=== PATIENT | male | born 1975 | race African-American/Black ===

== ENCOUNTER 2021-08-07 11:32 | Inpatient (IN) | payer OTHER ==
[~2021-08-07] VITALS: Ht 175.3 cm; Wt 94.3 kg
[2021-08-07 11:34] VITALS: BP 135/89
[2021-08-07 12:04] LABS: ABSOLUTE LYMPHOCYTES 0.9 thou/uL (0.8-5.3); ABSOLUTE MONOCYTES 0.6 thou/uL (0.0-1.2); ABSOLUTE NEUTROPHILS 4.9 thou/uL (1.6-8.1); BASOPHILS 0.5 %; HEMATOCRIT 46.8 % (42.0-52.0); HEMOGLOBIN 15.7 gm/dL (14.0-18.0); LYMPHOCYTES 13.5 %; MCH 28.7 pg (26.0-34.0); MCHC 33.5 g/dL (28.0-37.0); MCV 85.7 fL (80.0-100.0); MONOCYTES 9.4 %; MPV 8.3 fl. (7.2-11.1); NUCLEATED RBCS 0 /100WBC; PLATELET COUNT* 189 thou/uL (150-400); POLYS 76.6 %; RBC 5.47 mil/uL (4.50-6.00); RDW-CV 12.7 % (10.5-14.5); WBC 6.4 thou/uL (4.0-11.0)
[2021-08-07 12:10] LABS: APTT 27.6 Seconds (25.0-31.3); PROTIME 9.8 Seconds (9.20-11.50)
[2021-08-07 12:17] LABS: BE -1.8 mmol/L (-2 to +3); PCO2 35.9 mmHg (35.0-45.0); PO2 63.1 mmHg (75.0-100.0); pH 7.409 (7.340-7.450)
[2021-08-07 12:26] LABS: ALBUMIN 2.8 g/dL (3.4-5.0); CALCIUM 8.5 mg/dL (8.5-10.1); CREATININE 1.9 mg/dL (0.6-1.3); POTASSIUM 4.8 mmol/L (3.5-5.1); TOTAL BILIRUBIN 0.4 mg/dL (<0.1-1.0); TOTAL PROTEIN 7.8 g/dL (6.4-8.2)
--- NOTE | 2021-08-07 16:11 | EKG ---
[place] [address] ELECTROCARDIOGRAM REPORT Name: ALICIA DOUGLAS Room: [place] [address] ADM IN [facility]#: [id number] Admission: 08/07/21 Attend Phys: Jennifer Lebron, Discharge: Date of : 75 Date of Service: 08/07/21 1153 Report #: [id number] THIS REPORT FOR: //name// [facility] ED Test Date: 2021-08-07 Test Time: 11:53:18 Pat Name: ALICIA DOUGLAS Department: Room: [facility] Gender: M Perfume Maker: JOHNNY : 1975 Requested By: Rangel Islas Order Number: [id number] MD: Jatinder Perez Measurements Intervals [place] Rate: 93 P: 52 OK: 133 QRS: -40 QRSD: 80 T: 29 QT: 359 QTc: 447 Interpretive Statements Sinus rhythm Left anterior fascicular block No previous ECG available for comparison Electronically Signed On 08-07-2021 16:11:19 JAVA ARCHITECT by Jatinder Perez [email or web address] <ELECTRONICALLY SIGNED> By: Jatinder Perez MD, [facility] 08/07/21 1611 1153 1153 Jatinder Perez MD, [facility] /EPI
[2021-08-07 16:46] VITALS: BP 147/84
[2021-08-07 18:50] LABS: CALCIUM 8.9 mg/dL (8.5-10.1); CREATININE 1.7 mg/dL (0.6-1.3); POTASSIUM 5.2 mmol/L (3.5-5.1)
[2021-08-07 20:40] VITALS: BP 147/84
[2021-08-08] VITALS (7 sets, daily range): BP systolic 136–160; BP diastolic 49–90
[2021-08-08 04:01] LABS: HEMATOCRIT 40.3 % (42.0-52.0); HEMOGLOBIN 13.8 gm/dL (14.0-18.0); MCHC 34.4 g/dL (28.0-37.0); MCV 84.3 fL (80.0-100.0); MPV 7.9 fl. (7.2-11.1); RBC 4.78 mil/uL (4.50-6.00); WBC 6.1 thou/uL (4.0-11.0)
[2021-08-08 04:20] LABS: ALBUMIN 2.3 g/dL (3.4-5.0); CALCIUM 7.9 mg/dL (8.5-10.1); CREATININE 1.4 mg/dL (0.6-1.3); MAGNESIUM 2.9 mg/dL (1.8-2.4); POTASSIUM 4.9 mmol/L (3.5-5.1); TOTAL BILIRUBIN 0.3 mg/dL (<0.1-1.0); TOTAL PROTEIN 6.6 g/dL (6.4-8.2)
[2021-08-09] VITALS: BP 145/75
[2021-08-09 04:34] VITALS: BP 155/91
[2021-08-09 04:53] LABS: MCH 28.7 pg (26.0-34.0); MCHC 34.3 g/dL (28.0-37.0); MCV 83.7 fL (80.0-100.0); MPV 7.8 fl. (7.2-11.1); RBC 4.54 mil/uL (4.50-6.00); RDW-CV 13.2 % (10.5-14.5)
[2021-08-09 04:59] LABS: CALCIUM 7.8 mg/dL (8.5-10.1); CREATININE 1.1 mg/dL (0.6-1.3)
--- NOTE | 2021-08-09 05:27 | NUR ---
PT AO X4 TO FLOOR AT SHIFT CHANGE. FLUIDS AND MEDS PER ORDER. PT BP HAS BEEN TO THE HIGH SIDE THIS SHIFT. HE IS USING BSC TO VOID AND REPORTS SOME DIARRHEA THE PAST FEW DAYS. PT IS NSR ON TELEMETRY. PT MAKES NEEDS KNOWN WITH HOURLY ROUNDING AND IS TAKING GOOD PO INTAKE. CALL LIGHT IN REACH FOR PT SAFETY.
[2021-08-09 07:08] LABS: GLYCOHEMOGLOBIN (HGB A1C) 13.5 % (4.8-5.6)
[2021-08-09 09:00] VITALS: BP 153/82
[2021-08-09 10:42] LABS: BE -2.9 mmol/L (-2 to +3); PCO2 38.5 mmHg (35.0-45.0); pH 7.373 (7.340-7.450)
[2021-08-09 10:49] LABS: PO2 351.1 mmHg (75.0-100.0)
[2021-08-09 18:25] VITALS: BP 130/72
[2021-08-09 20:00] VITALS: BP 145/82
[2021-08-09 23:59] LABS: URINE BILIRUBIN NEGATIVE (Negative); URINE BLOOD 1+ (Negative); URINE CLARITY CLEAR; URINE COLOR YELLOW; URINE GLUCOSE-RANDOM NEGATIVE (Negative); URINE KETONES NEGATIVE (Negative); URINE LEUKOCYTES-REFLEX NEGATIVE (Negative); URINE NITRITE-REFLEX NEGATIVE (Negative); URINE PROTEIN 1+ (Negative); URINE UROBILINOGEN 0.2 E.U./dl (0.2-1.0)
[2021-08-10 00:20] LABS: BACTERIA-REFLEX 1-9 Few /HPF (None Seen); MUCUS None Seen strn/LPF (None Seen); SQUAMOUS 0-3 Few /LPF (0-3); URINE RBC 0-2 Rare /HPF (0-2); URINE WBC-REFLEX 0-5 Rare /HPF (0-5)
[2021-08-10 00:21] LABS: CASTS None Seen /LPF (None Seen); CRYSTALS None Seen /LPF (None Seen)
[2021-08-10 00:54] VITALS: BP 144/83
[2021-08-10 04:00] VITALS: BP 151/85
[2021-08-10 04:43] LABS: HEMATOCRIT 38.5 % (42.0-52.0); HEMOGLOBIN 13.3 gm/dL (14.0-18.0); MCH 28.8 pg (26.0-34.0); MCHC 34.6 g/dL (28.0-37.0); MCV 83.1 fL (80.0-100.0); MPV 7.4 fl. (7.2-11.1); NUCLEATED RBCS 0 /100WBC; PLATELET COUNT* 252 thou/uL (150-400); RBC 4.64 mil/uL (4.50-6.00); RDW-CV 13.1 % (10.5-14.5); WBC 10.4 thou/uL (4.0-11.0)
[2021-08-10 05:05] LABS: CALCIUM 7.6 mg/dL (8.5-10.1); CREATININE 1.1 mg/dL (0.6-1.3); MAGNESIUM 2.2 mg/dL (1.8-2.4); POTASSIUM 3.7 mmol/L (3.5-5.1); TOTAL BILIRUBIN 0.4 mg/dL (<0.1-1.0); TOTAL PROTEIN 6.1 g/dL (6.4-8.2)
--- NOTE | 2021-08-10 05:45 | NUR ---
ASSUMED CARE OF PT AFTER REPORT AT 1930. PT A&OX4. VSS. PHYSICAL ASSESSMENT COMPLETED AND CHARTED. PT ON FAL 60L/100%. PT TRACING SR ON TELE. PT UPADLIB-BSC. SPUTUM, URINE SPECIMEN & MRSA SWAB SENT TO LAB. PT DENIES ANY PAIN. MAINTAINED ON ENHANCE PRECAUTION. CALL LIGHT WITHIN REACH.
[2021-08-10 07:05] LABS: ABSOLUTE LYMPHOCYTES 0.9 thou/uL (0.8-5.3); ABSOLUTE MONOCYTES 0.4 thou/uL (0.0-1.2)
[2021-08-10 07:07] LABS: PLATELET ESTIMATE ADEQUATE
[2021-08-10 08:45] VITALS: BP 152/78
[2021-08-10 12:47] VITALS: BP 169/76
[2021-08-10 20:00] VITALS: BP 137/76
--- NOTE | 2021-08-11 00:19 | NUR ---
PT REFUSES BIPAP
[2021-08-11 00:51] VITALS: BP 141/74
[2021-08-11 04:00] VITALS: BP 146/77
[2021-08-11 04:06] LABS: HEMATOCRIT 40.2 % (42.0-52.0); HEMOGLOBIN 13.5 gm/dL (14.0-18.0); MCHC 33.7 g/dL (28.0-37.0); MCV 83.1 fL (80.0-100.0); MPV 7.8 fl. (7.2-11.1); RBC 4.83 mil/uL (4.50-6.00); WBC 11.4 thou/uL (4.0-11.0)
[2021-08-11 04:39] LABS: CALCIUM 7.8 mg/dL (8.5-10.1); CREATININE 1.2 mg/dL (0.6-1.3); MAGNESIUM 2.2 mg/dL (1.8-2.4); POTASSIUM 3.6 mmol/L (3.5-5.1); TOTAL BILIRUBIN 0.4 mg/dL (<0.1-1.0); TOTAL PROTEIN 6.2 g/dL (6.4-8.2)
--- NOTE | 2021-08-11 07:50 | NUR ---
ASSUMED CARE OF PT AFTER REPORT AT 1930. PT A&OX4. VSS. PHYSICAL ASSESSMENT COMPLETED AND CHARTED. PT ON HHFNC 95%/50L-REFUSED BIPAP EVEN AFTER EDUCATION. PT UPADLIB TO BSC. PT DENIES ANY PAIN. CALL LIGHT WITHININ REACH. PT ABLE TO SLEEP WELL ON BED. CALL LIGHT WITHIN REACH.
[2021-08-11 08:00] VITALS: BP 109/68
[2021-08-11 12:00] VITALS: BP 132/73
--- NOTE | 2021-08-11 14:01 | NUR ---
CM ASSESSMENT ASSESSMENT COMPLETED WITH PT'S FATHER (HOMER MISAEL-[phone]). PT RESIDES WITH SON IN SINGLE STORY HOME. PT HAS NO HX WITH DME AND IS INDEPENDENT WITH ADLS. PT HAS NO HX OF SKILLED, REHAB, OR HH SERVICES. PT NOT MEDICALLY CLEAR TO DC AND CURRENTLY ON HIFLOW O2. CM TO FOLLOW FOR DC PLANNING NEEDS.
--- NOTE | 2021-08-11 16:08 | CON ---
[address] [address] CONSULTATION Name: ALICIA DOUGLAS Room: [address] IN .R.#: [id number] Admission: 08/07/21 Attend Phys: Jennifer Lebron MD Discharge: Date of : 75 Report #: [id number] THIS REPORT FOR: cc: CHARIS - No family physician/PCP FAM - No family physician/PCP Triston Ernandez MD ~ DATE OF CONSULTATION: 08/09/2021 REQUESTING PHYSICIAN: Dr. Marcano. INDICATION FOR CONSULTATION: Acute hypoxemic respiratory failure secondary to COVID-19. HISTORY OF PRESENT ILLNESS: A 46-year-old gentleman. He reports that he is a lifetime nonsmoker. He has not been vaccinated for COVID-19. He does not have any significant past medical history. The patient is now admitted with progressively increasing weakness as well as shortness of breath and cough. He on presentation also had a glucose elevated above 500. His arterial blood gas, however, showed a pH of 7.41. Therefore, it appeared that he was in a nonketotic hyperosmolar state. The patient also was in acute renal failure with a creatinine of 1.9. He did test positive for COVID and was hypoxemic on room air initially, but was maintaining O2 saturation on 2 liters nasal cannula. Since then, the patient has been treated with insulin as well as has been on normal saline at 125 an hour. Initially was on an insulin drip and now is on subcutaneous insulin. In addition, he is also being treated with Decadron and remdesivir in addition to broad-spectrum antibiotics. His glucoses have improved down to 151 now. His creatinine has also normalized to 1.1; however, his respiratory status is significantly worse. Currently, he is on 95% FiO2 with 55 liters heated high-flow nasal cannula to maintain O2 saturation in the low 90s. Earlier, he was on BiPAP due to respiratory distress and we performed arterial blood gas with 100% FiO2 with BiPAP in place. His pO2 in fact was high at 351. Therefore, I am asking that O2 saturation will be checked at several sites to verify that we are getting accurate readings and we may do an arterial blood gas again if FiO2 saturations remain uncertain; however, it is also noted that I obtained the stat chest x-ray now and it does show considerable worsening infiltrates and there are now florid bilateral infiltrates noted in bilateral lung asencio. There is not much swelling of lower extremities. He is currently afebrile. REVIEW OF SYSTEMS: For 12 points is negative except as mentioned above. PAST MEDICAL HISTORY: There is no past medical history. SOCIAL HISTORY: Lifetime nonsmoker. No known history [place] [address] CONSULTATION Name: ALICIA DOUGLAS Room: [address] IN [facility]#: [id number] Admission: 08/07/21 Attend Phys: Jennifer Lebron MD Discharge: Date of : 75 Report #: [id number] illegal drug use. CURRENT MEDICATIONS: List in [facility] reviewed. HOME MEDICATIONS: No home medications. PHYSICAL EXAMINATION: GENERAL: He is alert, awake and oriented, does not appear to be in any distress; however, has O2 saturation of 94% on 55 liters of oxygen and 95% FiO2. VITAL SIGNS: He has a pulse of 75, blood pressure is 153/82, respiratory rate is around 22, afebrile with a temperature of 36.9. HEENT: Head is normocephalic and atraumatic. NECK: Does not show raised JVP. CHEST: Breath sounds are bilaterally equal. No added sounds. HEART: Regular. There is no murmur. ABDOMEN: Soft and nontender. EXTREMITIES: Lower extremities, no edema, no calf tenderness. LABORATORY DATA: CTA chest from 2 days ago as well as lab work in [facility] reviewed. Chest x-rays in [facility] reviewed. He is positive for both PCR and antigen for COVID-19. ASSESSMENT AND PLAN: 1. Acute hypoxemic respiratory failure secondary to COVID-19. Continue BiPAP while asleep. Continue heated high-flow nasal cannula while awake. We will be verifying his O2 saturations further as above. Avoid sleeping supine. There is a dramatic worsening of the chest x-rays, the chest x-ray compared with 2 days ago. Certainly, this could be due to a significant worsening of the infiltrates as well. However, considering that he has also received IV fluids, I will also go ahead and diurese him and see how he responds. 2. COVID-19. We would increase dexamethasone to 8 mg b.i.d. In fact may consider increasing dexamethasone even further. Recommend adjusting insulin accordingly. Continue remdesivir. Recommend Actemra. Unfortunately, Actemra is not available. 3. Pulmonary infiltrates. Continue the current antibiotics. If he fails to improve, then I intend to broaden antibiotics tomorrow. More cultures and serologies are ordered. I would switch to doxycycline to p.o. 4. Acute renal failure. This appears to be resolving. I am giving him Lasix as above. May need to accept mild elevation in BUN and creatinine. 5. Nonketotic hyperosmolar hyperglycemic state/diabetes. May need more insulin as a result of increase in the dexamethasone dose. 6. Possible component of bronchospasm. Sallya and p.r.n. albuterol via nebs, therefore moved to a negative pressure room. 7. Clostridium difficile prophylaxis, [place] [address] CONSULTATION Name: MISAELALICIA P Room: [address] IN [facility]#: [id number] Admission: 08/07/21 Attend Phys: Jennifer Lebron MD Discharge: Date of : 75 Report #: [id number] 8. Gastrointestinal prophylaxis, Protonix. 9. This patient is critically ill at this time. Total time spent providing critical care to this patient today is 38 minutes. <ELECTRONICALLY SIGNED> By: Triston Ernandez MD 08/11/21 1608 1427 1915Asal Ernandez MD /nt
--- NOTE | 2021-08-11 16:30 | 2DMMODE ---
[place] [address] 2 D/M-MODE ECHOCARDIOGRAM Name: ALICIA DOUGLAS Room: [address] IN [facility]#: [id number] Admission: 08/07/21 Attend Phys: Jennifer Lebron, Discharge: Date of : 75 Date of Service: 08/11/21 1630 Report #: [id number] THIS REPORT FOR: cc: FAM - No family physician/PCP CHARIS - No family physician/PCP Alfred Ware MD [facility] ~ APPROVED REPORT Study performed: 08/11/2021 15:30:26 EXAM: Comprehensive 2D, Doppler, and color-flow Echocardiogram Patient Location: In-Patient Room #: [facility] Status: routine BSA: 2.11 HR: 92 bpm Rhythm: NSR Other Information Study Quality: Good Indications Dyspnea 2D Dimensions IVSd: 12.94 (7-11mm) LVOT Diam: 20.70 (18-24mm) LVDd: 35.54 mm PWd: 12.42 (7-11mm) Ascending Ao: 28.85 (22-36mm) LVDs: 22.33 (25-40mm) Aortic Root: 27.04 mm Volumes Left Atrial Volume (Systole) LA ESV Index: 18.60 mL/m2 Aortic Valve AoV Peak Albert.: 1.28 m/s AO Peak Gr.: 6.59 mmHg LVOT Max P.63 mmHg AO Mean Gr.: 3.80 mmHg LVOT Mean P.10 mmHg LVOT Max V: 1.08 m/s AO V2 VTI: 18.01 cm LVOT Mean V: 0.65 m/s FELTON (VTI): 3.54 cm2 LVOT V1 VTI: 18.97 [place] [address] 2 D/M-MODE ECHOCARDIOGRAM Name: ALICIA DOUGLAS Room: [address] IN ..#: [id number] Admission: 08/07/21 Attend Phys: Jennifer Lebron, Discharge: Date of : 75 Date of Service: 08/11/21 1630 Report #: [id number] Mitral Valve E/A Ratio: 1.16 MV Decel. Time: 200.98 ms MV E Max Albert.: 0.68 m/s MV PHT: 58.28 ms MVA (PHT): 3.77 cm2 TDI E/Lateral E': 7.56 E/Medial E': 6.18 Medial E' Albert.: 0.11 m/s Lateral E' Albert.: 0.09 m/s Pulmonary Valve PV Peak Albert.: 0.94 m/s PV Peak Gr.: 3.57 mmHg Left Ventricle The left ventricle is normal size. There is normal LV segmental wall motion. Mild concentric left ventricular hypertrophy. Left ventricular systolic function is normal. The left ventricular ejection fraction is within the normal range. LVEF is 60-65%. Right Ventricle The right ventricle is normal size. The right ventricular systolic function is normal. Atria The left atrium size is normal. The right atrium size is normal. Aortic Valve The aortic valve is normal in structure. No aortic regurgitation is present. There is no aortic valvular stenosis. Mitral Valve The mitral valve is normal in structure. There is no mitral valve regurgitation noted. No evidence of mitral valve stenosis. Tricuspid Valve The tricuspid valve is normal in structure. Trace tricuspid regurgitation. Unable to assess PA pressure. Pulmonic Valve The pulmonary valve is normal in structure. Mild pulmonic regurgitation[place] [address] 2 D/M-MODE ECHOCARDIOGRAM Name: ALICIA DOUGLAS Room: [address] IN [facility]#: [id number] Admission: 08/07/21 Attend Phys: Jennifer Lebron, Discharge: Date of : 75 Date of Service: 08/11/21 1630 Report #: [id number] The aortic root is normal in size. IVC is normal in size and collapses >50% with inspiration. Pericardium There is no pericardial effusion. <Conclusion> The left ventricle is normal size. Mild concentric left ventricular hypertrophy. Left ventricular systolic function is normal. The left ventricular ejection fraction is within the normal range. LVEF is 60-65%. The right ventricle is normal size. The left atrium size is normal. The aortic valve is normal in structure. The mitral valve is normal in structure. The tricuspid valve is normal in structure. IVC is normal in size and collapses >50% with inspiration. There is no pericardial effusion. There is normal LV segmental wall motion. <ELECTRONICALLY SIGNED> By: Alfred Ware MD, FACC 08/11/21 1630 [id number] Alfred Ware MD, FACC /INF
--- NOTE | 2021-08-11 19:58 | NUR ---
I ASSUMED CARE OF THE PATIENT AT 0700. HE IS ALERT AND ORIENTED X4 AND IS UP WITH SBA IN THE ROOM TO THE COMMODE AND CHAIR. BED IN IN THE LOW LOCKED POSITION AND CALL LIGHT IS IN REACH. PATIENT NEEDS ARE MET DURING HOURLY ROUNDING. PAIN IS DENIED. ISOLATION IS MAINTAINED. ECHO AND REPEAT CHEST XRAY WERE DONE. BLOOD GLUCOSE WAS MONITORED AND SLIDING SCALE INSULIN WAS USED. HE ALTERNATES BETWEEN THE HEATED HIGH FLOW AND THE BIPAP. HE HAD MULTIPLE BOWEL MOVEMENTS TODAY. WILL CONTINUE TO MONITOR.
[2021-08-11 20:00] VITALS: BP 139/73
[2021-08-12] VITALS: BP 135/82
[2021-08-12 04:11] VITALS: BP 137/80
[2021-08-12 04:26] LABS: ABSOLUTE LYMPHOCYTES 0.4 thou/uL (0.8-5.3); ABSOLUTE MONOCYTES 0.5 thou/uL (0.0-1.2); ABSOLUTE NEUTROPHILS 10.6 thou/uL (1.6-8.1); BASOPHILS 0.4 %; HEMOGLOBIN 13.8 gm/dL (14.0-18.0); LYMPHOCYTES 3.7 %; MCH 28.7 pg (26.0-34.0); MCHC 34.5 g/dL (28.0-37.0); MCV 83.1 fL (80.0-100.0); MONOCYTES 4.2 %; NUCLEATED RBCS 0 /100WBC; PLATELET COUNT* 316 thou/uL (150-400); POLYS 91.7 %; RBC 4.81 mil/uL (4.50-6.00); RDW-CV 12.9 % (10.5-14.5); WBC 11.6 thou/uL (4.0-11.0)
[2021-08-12 04:38] LABS: CALCIUM 7.9 mg/dL (8.5-10.1); CREATININE 1.2 mg/dL (0.6-1.3); MAGNESIUM 2.3 mg/dL (1.8-2.4); POTASSIUM 3.8 mmol/L (3.5-5.1); TOTAL BILIRUBIN 0.5 mg/dL (<0.1-1.0); TOTAL PROTEIN 6.7 g/dL (6.4-8.2)
--- NOTE | 2021-08-12 07:59 | NUR ---
ASSUMED CARE OF PT AFTER REPORT AT 1930. PT A&OX4. VSS. PHYSICAL ASSESSMENT COMPLETED AND CHARTED. PT ON HHFNC 100%/60L/BIPAP 100%. PT TRACING SR ON TELE. PT DENIES ANY PAIN. CALL LIGHT WITHIN REACH. ENCOURAGED TO SLEEP ON SIDES/STOMACH-COMMUNICATES UNDERSTANDING.
[2021-08-12 08:00] VITALS: BP 128/79
[2021-08-12 08:49] LABS: BE -3.5 mmol/L (-2 to +3); PCO2 30.1 mmHg (35.0-45.0); PO2 76.9 mmHg (75.0-100.0); pH 7.427 (7.340-7.450)
[2021-08-12 11:30] VITALS: BP 133/79
--- NOTE | 2021-08-12 15:38 | NUR ---
CM FOLLOWUP PT NOT YET MEDICALLY CLEAR WITH A DX OF COVID AND WORSENING O2 NEEDS. PT ANTICIPATED TO DC HOME ONCE MEDICALLY CLEAR. CM TO FOLLOW FOR DC NEEDS.
[2021-08-12 20:00] VITALS: BP 147/70
[2021-08-13 00:31] VITALS: BP 148/75
[2021-08-13 04:00] VITALS: BP 151/79
[2021-08-13 05:17] LABS: HEMATOCRIT 38.8 % (42.0-52.0); HEMOGLOBIN 13.2 gm/dL (14.0-18.0); MCH 28.5 pg (26.0-34.0); MCHC 33.9 g/dL (28.0-37.0); MCV 83.9 fL (80.0-100.0); MPV 7.5 fl. (7.2-11.1); NUCLEATED RBCS 0 /100WBC; PLATELET COUNT* 328 thou/uL (150-400); RBC 4.63 mil/uL (4.50-6.00); RDW-CV 13.3 % (10.5-14.5); WBC 11.8 thou/uL (4.0-11.0)
[2021-08-13 05:36] LABS: ALBUMIN 2.1 g/dL (3.4-5.0); CREATININE 1.2 mg/dL (0.6-1.3); MAGNESIUM 2.4 mg/dL (1.8-2.4); POTASSIUM 4.1 mmol/L (3.5-5.1); TOTAL BILIRUBIN 0.6 mg/dL (<0.1-1.0); TOTAL PROTEIN 6.5 g/dL (6.4-8.2)
[2021-08-13 07:22] LABS: ABSOLUTE LYMPHOCYTES 0.7 thou/uL (0.8-5.3); ABSOLUTE MONOCYTES 0.9 thou/uL (0.0-1.2); ABSOLUTE NEUTROPHILS 10.1 thou/uL (1.6-8.1)
[2021-08-13 07:23] LABS: PLATELET ESTIMATE ADEQUATE
[2021-08-13 08:00] VITALS: BP 136/79
--- NOTE | 2021-08-13 08:07 | NUR ---
ASSUMED CARE OF PT AFTER REPORT AT 1930. PT A&OX4. VSS. PHYSCICAL ASSESSMENT COMPLETED AND CHARTED. PT ON FNC 100%L/55L. PT TRACING SR ON TELE. PT UPSTANDBY TO RESTROOM. PT ABLE TO SLEEP WELL ON BED. FALL PRECAUTIONS IN PLACE. CALL LIGHT WITHIN REACH.
[2021-08-13 12:42] VITALS: BP 139/89
--- NOTE | 2021-08-13 15:41 | NUR ---
CM FOLLOWUP PT NOT YET MED CLEAR AND CONTINUES TO HAVE O2 NEEDS. CM TO FOLLOW FOR DC PLANNING NEEDS. CURRENT DC PLAN IS FOR PT TO RETURN HOME WITH SON ONCE MED CLEAR.
[2021-08-13 17:26] VITALS: BP 118/76
[2021-08-13 20:00] VITALS: BP 129/66
[2021-08-14 02:32] VITALS: BP 122/77
[2021-08-14 04:04] LABS: ABSOLUTE LYMPHOCYTES 0.6 thou/uL (0.8-5.3); ABSOLUTE MONOCYTES 0.9 thou/uL (0.0-1.2); BASOPHILS 0.3 %; EOSINOPHILS 0.1 %; HEMATOCRIT 42.1 % (42.0-52.0); HEMOGLOBIN 14.1 gm/dL (14.0-18.0); LYMPHOCYTES 4.2 %; MCH 28.1 pg (26.0-34.0); MCHC 33.5 g/dL (28.0-37.0); MONOCYTES 6.4 %; MPV 7.2 fl. (7.2-11.1); NUCLEATED RBCS 0 /100WBC; PLATELET COUNT* 368 thou/uL (150-400); RBC 5.01 mil/uL (4.50-6.00); RDW-CV 13.4 % (10.5-14.5); WBC 13.5 thou/uL (4.0-11.0)
[2021-08-14 04:22] LABS: ALBUMIN 2.1 g/dL (3.4-5.0); CALCIUM 8.1 mg/dL (8.5-10.1); CREATININE 1.3 mg/dL (0.6-1.3); MAGNESIUM 2.3 mg/dL (1.8-2.4); POTASSIUM 4.3 mmol/L (3.5-5.1); TOTAL BILIRUBIN 0.5 mg/dL (<0.1-1.0); TOTAL PROTEIN 6.9 g/dL (6.4-8.2)
[2021-08-14 05:49] VITALS: BP 120/72
--- NOTE | 2021-08-14 06:04 | NUR ---
ASSUMED CARE OF PT AFTER REPORT AT 1930. PT A&OX4. VSS. PHYSICAL ASSESSMENT COMPLETED AND CHARTED. PT ON HHFNC 100%/55L+NRB 15L. PT TRACING SR ON TELE. PT UPSTANDBY TO RESTROOM. PT ABLE TO SLEEP WELL ON BED. FALL PRECAUTIONS IN PLACE. CALL LIGHT WITHIN REACH.
[2021-08-14 08:30] VITALS: BP 114/73
--- NOTE | 2021-08-14 13:44 | NUR ---
Nutrition: Pt admitted to COVID unit. Assessed for LOS. Heart healthy/CHO controlled diet ordered. Per nsg, pt is eating fine. On O2, insulin. Wt: 208#. Labs: BG 121-136, alb 2.1, prealb 11.7. MedS: glipizide, metformin, vit C, albuterol. No other nutrition interventions needed at this time. RD available via consult if needed. Mild to low nutrition risk.
[2021-08-14 14:53] VITALS: BP 113/66
[2021-08-14 16:00] VITALS: BP 131/78
--- NOTE | 2021-08-14 19:07 | NUR ---
CM FOLLOWUP PT NOT MED CLEAR. PT ON 15L. CM TO FOLLOW FOR DC PLANNING NEEDS.
--- NOTE | 2021-08-14 19:27 | NUR ---
Assumed care at 0730. Pt is alert and oriented. Assessment done. Pt is on the heated high flow. Pt had some of his meal. WIll continue to care for pt.
[2021-08-14 20:00] VITALS: BP 121/72
[2021-08-15] VITALS (40 sets, daily range): BP systolic 19–254; BP diastolic 13–133
[2021-08-15 00:42] LABS: BE -1.1 mmol/L (-2 to +3); PCO2 35.3 mmHg (35.0-45.0); pH 7.424 (7.340-7.450)
[2021-08-15 00:46] LABS: PO2 40.8 mmHg (75.0-100.0)
--- NOTE | 2021-08-15 00:55 | NUR ---
PT FOUND WITH HHF AND NON REBREATHER OFF CALLED FOR NURSING AT [facility] DUE TO SAT IN THE 60'S AT PT IS NOT RESPONDING TO HIS NAME. PLACED BACK ON NON REBREATHER MASK AND HHF INCREASED TO 60L AND 100% WILL OBTAIN STAT ABG AND HE WILL GET A STAT CHEST XRAY. PT IS LAYING ON LEFT SIDE AT THIS TIME WITH RR 40'S.
[2021-08-15 04:43] LABS: BE -8.2 mmol/L (-2 to +3)
[2021-08-15 04:49] LABS: PCO2 51.3 mmHg (35.0-45.0); PO2 32.8 mmHg (75.0-100.0); pH 7.209 (7.340-7.450)
--- NOTE | 2021-08-15 04:55 | NUR ---
UPDATED DAD ON CRITICAL STATUS.
--- NOTE | 2021-08-15 06:54 | NUR ---
ASSUMED PT CARE AT APPROX 1930. PT IS LETHARGIC BUT IS AROUSABLE, IS ABLE TO ANSWER YES AND NO QUESTIONS. DESATURATIONS NOTED ON HEATED HIGHFLOW AT 100%, RT INFORMED, AND ADDITIONAL 15L OF NRB PROVIDED. DR GOMEZ UPDATED OF PT's STATUS, STAT CXR AND ABG DONE ORDERED, RESULTS RELAYED TO DR VALERIO, PT WAS PUT ON THE BIPAP PER DR VALERIO BUT spo2 IS NOT IMPROVING. PT IS INTUBATED BY DR WINTERS AT APPROX 0323 ENDOTRACHEAL TUBE FR 7.5 AT 22cm LEVEL, PLACEMENT CONFIRMED BY CHEST XRAY. PT IS TRANSFERED TO ICU AT APPROX 0425, DR VALERIO AND FAMILY INFORMED.
--- NOTE | 2021-08-15 09:28 | EKG ---
[place] [address] ELECTROCARDIOGRAM REPORT Name: ALICIA DOUGLAS Room: [address] IN M.R.#: [id number] Admission: 08/07/21 Attend Phys: Jennifer Lebron, Discharge: Date of : 75 Date of Service: 08/15/21 0440 Report #: [id number] THIS REPORT FOR: //name// [facility] Test Date: 2021-08-15 Test Time: 04:40:22 Pat Name: ALICIA RODASLER Department: Room: [address] Gender: M Audio Production Manager: ELIJAH : 1975 Requested By: Zion Ace Order Number: [id number] Julia MD: Alfred Ware Measurements Intervals [place] Rate: 126 P: 7 NC: 125 QRS: 119 QRSD: 88 T: -7 QT: 299 QTc: 433 Interpretive Statements Sinus tachycardia Right axis deviation Low voltage, precordial leads Minimal ST depression, inferior leads Baseline wander in lead(s) V6 Compared to ECG 08/07/2021 11:53:18 Right-axis deviation now present Low QRS voltage now present Inferior ST-T changes have developed Sinus rate has increased Left anterior fascicular block no longer present Electronically Signed On 08-15-2021 9:28:40 AQUATICS DIRECTOR by Alfred Ware [email or web address] <ELECTRONICALLY SIGNED> By: Alfred Ware MD, [facility] 08/15/21 0928 9 9 Alfred Ware MD, [facility] /EPI
== END 2021-08-15 08:54 | DRG 208 ==
LOC: M.ERS 11:32 → M.TBA-ER 12:50 → M.ICU 12:50 → M.ORTHSURG 08-08 18:52 → M.ICU 08-15 04:47
PROVIDERS: Emergency Medicine; Internal Medicine; Internal Medicine Critical Care Medicine; Personal Emergency Response Attendant; ADMIT Internal Medicine; ATTEND Internal Medicine
PROC: 02HV33Z Insertion of Infusion Device into Superior Vena Cava, Percutaneous Approach (ICD-10-PCS; principal; 2021-08-07)
PROC: XW033E5 Introduction of Remdesivir Anti-infective into Peripheral Vein, Percutaneous Approach, New Technology Group 5 (ICD-10-PCS; 2021-08-07)
PROC: 5A0955A Assistance with Respiratory Ventilation, Greater than 96 Consecutive Hours, High Flow/Velocity Cannula (ICD-10-PCS; 2021-08-09)
PROC: 5A09357 Assistance with Respiratory Ventilation, Less than 24 Consecutive Hours, Continuous Positive Airway Pressure (ICD-10-PCS; 2021-08-11)
PROC: 5A09357 Assistance with Respiratory Ventilation, Less than 24 Consecutive Hours, Continuous Positive Airway Pressure (ICD-10-PCS; 2021-08-12)
PROC: 5A1935Z Respiratory Ventilation, Less than 24 Consecutive Hours (ICD-10-PCS; 2021-08-15)
PROC: 0BH17EZ Insertion of Endotracheal Airway into Trachea, Via Natural or Artificial Opening (ICD-10-PCS; 2021-08-15)
PROC: 5A09357 Assistance with Respiratory Ventilation, Less than 24 Consecutive Hours, Continuous Positive Airway Pressure (ICD-10-PCS; 2021-08-15)
DX: U07.1 COVID-19 (principal); E11.00 Type 2 diabetes mellitus with hyperosmolarity without nonketotic hyperglycemic-hyperosmolar coma (NKHHC); J12.82 Pneumonia due to coronavirus disease 2019; J96.01 Acute respiratory failure with hypoxia; G93.41 Metabolic encephalopathy; N17.9 Acute kidney failure, unspecified; Z79.4 Long term (current) use of insulin; K20.90 Esophagitis, unspecified without bleeding